=== PATIENT | female | born 1975 | race Caucasian/White ===

== ENCOUNTER 2023-12-25 10:19 | Emergency (ER) | payer SELFPAY ==
[~2023-12-25] VITALS: Ht 157.5 cm; Wt 67.3 kg
[2023-12-25] MEDS ORDERED: KETOROLAC TROMETHAMINE 30 MG/ML VIAL ONE (10:48)
[2023-12-25] MEDS ORDERED: LACTATED RINGER'S 1,000 ML ONE (10:48)
[2023-12-25] MEDS ORDERED: ONDANSETRON HCL INJ 2MG/ML 2ML 2 MG/ML VIAL ONE (10:48)
[2023-12-25] MEDS ORDERED: FAMOTIDINE 20 MG/2 ML VIAL IV ONE (10:48)
[2023-12-25] MEDS: FAMOTIDINE 20 MG/2 ML VIAL IV ONE (11:29)
[2023-12-25] MEDS: ONDANSETRON HCL INJ 2MG/ML 2ML 2 MG/ML VIAL IV ONE (11:29)
[2023-12-25] MEDS: LACTATED RINGER'S 1,000 ML INJ ONE (11:29)
[2023-12-25] MEDS: KETOROLAC TROMETHAMINE 30 MG/ML VIAL IV ONE (11:30)
[2023-12-25] MEDS ORDERED: IOPAMIDOL 370 MG/ML 100 ML INFUS..BTL INJ ONE (12:03)
[2023-12-25] MEDS ORDERED: FAMOTIDINE20 MG PO (13:35)
[2023-12-25] MEDS ORDERED: ONDANSETRON ODT4 MG PO (13:35)
[2023-12-25] MEDS ORDERED: MAALOX MAXIMUM355 ML PO (13:35)
[2023-12-25 13:42] VITALS: O2SAT 99
== END 2023-12-25 13:42 | disposition home or self-care (01) ==
LOC: FSED 10:25
DX: R11.2 Nausea with vomiting, unspecified (principal); A05.9 Bacterial foodborne intoxication, unspecified; R10.31 Right lower quadrant pain
CPT/HCPCS: 74177; 80053; 81003; 81025; 85025; 96374; 96375; 99284; J1885; J2405; J7121; Q9967